=== PATIENT | male | born 1965 | race Caucasian/White ===

== ENCOUNTER → 2020-09-19 | Outpatient (CLI) | payer OTHER ==
[~2020-09-19] MED LIST: CENTRUM SILVER1 EAC2 PO; TRAMADOL 50 MG50 MG PO; VITAMIN D325 MC3 PO
[2020-09-19 09:46] LABS: URINE BILIRUBIN NEGATIVE (Negative); URINE BLOOD NEGATIVE (Negative); URINE CLARITY CLEAR; URINE COLOR YELLOW; URINE GLUCOSE-RANDOM* NEGATIVE (Negative); URINE KETONES NEGATIVE (Negative); URINE LEUKOCYTES-REFLEX NEGATIVE (Negative); URINE NITRITE-REFLEX NEGATIVE (Negative); URINE PROTEIN (DIPSTICK) NEGATIVE (Negative); URINE SPECIFIC GRAVITY 1.025 (1.005-1.035); URINE UROBILINOGEN 0.2 E.U./dl (0.2-1.0)
[2020-09-19 09:48] LABS: HEMATOCRIT 47.2 % (42.0-52.0); HEMOGLOBIN 15.9 gm/dL (14.0-18.0); MCH 30.4 pg (26.0-34.0); MCHC 33.7 g/dL (28.0-37.0); MCV 90.3 fL (80.0-100.0); RBC 5.23 mil/uL (4.50-6.00); WBC 7.1 thou/uL (4.0-11.0)
[2020-09-19 09:54] LABS: ALBUMIN 4.1 g/dL (3.4-5.0); CALCIUM 8.9 mg/dL (8.5-10.1); CREATININE 0.8 mg/dL (0.7-1.3); POTASSIUM 4.3 mmol/L (3.5-5.1)
[2020-09-19 10:06] LABS: INR 0.96; PROTIME 10.5 Seconds (10.5-12.1)
--- NOTE | 2020-09-19 10:43 | EKG ---
[address] [address] ELECTROCARDIOGRAM REPORT Name: NIMA VASQUEZ Room #: [facility]#: [id number] Admission: 09/19/20 Attend Phys: Lanre Ayers MD Discharge: Date of : 61 Report #: [id number] [facility] Test Date: 2020-09-19 Test Time: 09:36:45 Pat Name: NIMA VASQUEZ Department: Room: Gender: Store Clerk: COUNTS INCLUDE 234 BEDS AT THE [facility] : 1965 Requested By: Lanre Ayers Order Number: [id number] : Gianluca Red Measurements Intervals [place] Rate: 59 P: 52 IA: 146 QRS: 67 QRSD: 102 T: 28 QT: 410 QTc: 407 Interpretive Statements Sinus rhythm Baseline wander in lead(s) V5 No previous ECG available for comparison Electronically Signed On 09-19-2020 10:43:19 CDT by Gianluca Red [email or web address] <ELECTRONICALLY SIGNED> By: Gianluca Red MD, [facility] 09/19/20 1043 [id number] 0936 Gianluca Red MD, FACC /EPI
== END ==
LOC: PAC
PROVIDERS: ATTEND Orthopaedic Surgery
DX: Z01.810 Encounter for preprocedural cardiovascular examination (principal); Z01.812 Encounter for preprocedural laboratory examination; M17.11 Unilateral primary osteoarthritis, right knee

== ENCOUNTER 2020-09-25 07:05 | Observation (INO) | payer OTHER ==
[~2020-09-25] VITALS: Ht 195.6 cm; Wt 100.2 kg
[2020-09-25 08:31] VITALS: BP 132/75
--- NOTE | 2020-09-25 14:21 | NUR ---
Pt transferred to unit from PACU. Pt a&ox4. Pain controlled with prn pain meds. Dressing c/d/i. IVF infusing. Pt worked with physical therapy. Pt will stay in the hospital overnight. Family at bedside. Call light within reach. Will continue to monitor.
[2020-09-25 14:55] VITALS: BP 132/75
--- NOTE | 2020-09-25 14:56 | NUR ---
ASSESSMENT: CM REVIEWED CHART AND MET WITH PATIENT AND HIS AT THE BEDSIDE. PT IS ALERT AND ORIENTED X4. PT IS S/P RIGHT TKA. PT REPORTS HAVING A HX OF MULTIPLE SCLEROSIS AND WAS DX 2005. PT REPORTS LIVING IN AN APT WITH HIS . PT REPORTS NO STEPS TO ENTER THE APT OR ONCE INSIDE. PT REPORTS HAVING MULTIPLE CANES AT HOME BUT DOES NOT HAVE A WALKER. PATIENT WORKED WITH PHYSICAL THERAPY WHO IS RECOMMENDING A WALKER FOR HOME. CM DISCUSSED WITH PATIENT AND HE HAS NO PREFERENCE OF DME PROVIDER. CM NOTIFIED [employer] FROM [facility] WHO REPORTS THEY CAN PROVIDE PATIENT WITH A WALKER AND WILL DELIVER IN THE AM. PT REPORTS HAVING OUTPATIENT THERAPY ARRANGED AT [facility] PT TO BEGIN ON TUESDAY. CM DISCUSSED ROLE. PT DOES NOT ANTICIPATE ANY NEEDS FROM CM OTHER THEN A WALKER. CM WILL CONTINUE TO FOLLOW TO ASSIST NEEDED.
[2020-09-25 14:58] VITALS: BP 111/73
[2020-09-25 19:52] VITALS: BP 123/76
--- NOTE | 2020-09-26 04:28 | NUR ---
ASSUMED PT CARE AT 2300.PT WAS ASLEEP AT SHIFT CHANGE.PT WAS LATER HELPED TO THE BR WITH ASSIST/GB AND WALKER.GOOD ENDURANCE NOTED.DRSG C/D/I WITH POLAR. SECOND BAG OF IV ABX GIVEN.PT DENYING PAIN SO FAR.CALL LIGHT WITHIN REACH.
[2020-09-26 09:30] VITALS: BP 136/86
--- NOTE | 2020-09-26 11:59 | NUR ---
Provider plus delivered FWW for his dc home today with outpt therapy.
[2020-09-26 13:04] VITALS: BP 132/75
--- NOTE | 2020-10-02 11:33 | O ---
[facility] [place] [address] OPERATIVE REPORT Name: NIMA VASQUEZ Room #: 436-P [facility] Marcia Pham#: [id number] Admission: 09/25/20 Attend Phys: Lanre Ayers MD Discharge: 09/26/20 Date of : 61 Report #: [id number] THIS REPORT FOR: cc: Jose Davis MD, Timothy MD Abraham,Lanre Campbell MD ~ DOC #: [id number] Lanre Ayers MD DATE OF SERVICE: 09/25/2020 PREOPERATIVE DIAGNOSIS: Right knee osteoarthritis. POSTOPERATIVE DIAGNOSIS: Right knee osteoarthritis. PROCEDURE: Right total knee arthroplasty using Navio robotic assistance. SURGEON: Lanre Ayers MD. AUTO SUSPENSION AND STEERING MECHANIC: Aida Lima PA-C INDICATION FOR AUTO SUSPENSION AND STEERING MECHANIC: Throughout the case, extensive retraction and manipulation of the knee was required. This was afforded to me by my assistant center manager. ANESTHESIA: LMA with adductor canal block. IMPLANTS: A [employer] size 7 Journey II BCS Oxinium femur, size 8 tibia, size 11 polyethylene and size 38 patella. Tourniquet time was 56 minutes. ESTIMATED BLOOD LOSS: 25 mL COMPLICATIONS: None. SPECIMENS: None. CONDITION UPON LEAVING THE OPERATING ROOM: Stable. INDICATIONS FOR PROCEDURE: The patient is a 55-year-old gentleman with severe right knee osteoarthritis. He had failed conservative measures for this and after discussion with him, he elected for right total knee arthroplasty. DESCRIPTION OF PROCEDURE: Risks, benefits, alternatives, complications were discussed in detail with the patient include but not limited to risk of anesthesia, risk of damage to nerves, arteries, blood vessels, risk for infection, bleeding, need for reoperation. Informed consent was obtained from the patient. The right knee was appropriately marked in the preoperative holding area. IV Ancef was given for preoperative antibiotics. He was brought [address] [address] OPERATIVE REPORT Name: NIMA VASQUEZ Raghav Room #: 436-P [facility] Pham#: [id number] Admission: 09/25/20 Attend Phys: Lanre Ayers MD Discharge: 09/26/20 Date of : 61 Report #: [id number] to the operating room and placed in supine position on the operating room table. LMA anesthesia was induced without complication. Tourniquet was placed on the right thigh. Right lower extremity was prepped and draped in normal sterile fashion. Timeout was performed properly identifying the patient and procedure as well as instrumentation and implants. All in the operating room in agreement. Right lower extremity was exsanguinated, tourniquet was inflated. Tourniquet time was 56 minutes. Standard midline approach to the knee was made with 10 blade through the skin. Dissection was taken down sharply to the fascia and deep flaps were developed medially and laterally. Fresh 10 blade was used to make a medial parapatellar arthrotomy and the knee was inspected. There was severe tricompartmental osteoarthritis. ACL and PCL were removed sharply. Reference pins were placed in the femur and the tibia. The knee was digitally mapped using the RateSetter robotic system. Intraoperative plan was made. We sized the size 7 femur, the size 8 tibia and a 10 spacer. After acceptance of the intraoperative plan, the distal femoral cut was made with Navio bur. Distal femoral cutting block was pinned in place and chamfer cuts were made. Attention was turned to the tibia. Remainder of the menisci removed with Bovie cautery. Tibial resection guide was pinned in place using Navio for placement. Tibial resection was made. Medial osteophyte was removed from the tibia and flexion and extension gaps were checked and found to have good balance in flexion and extension both medially and laterally. Tibia sized, found to be a size 8. Size 8 tibial trial was placed, pinned and punched. A size 7 femoral trial was placed and the box cut was made. This was then trialed with a size 10 and then a size 11 polyethylene and a size 11 polyethylene demonstrated the best stability and range of motion both medially and laterally, 9 mm of bone was then resected from the posterior surface of the patella and a size 38 patellar trial button was placed. Knee was taken through range of motion, found to be stable, found to have good patellar tracking. Trial components were removed. Bone ends were thoroughly irrigated with normal saline. Final size 8, tibia size 7 Journey II BCS Oxinium femur and a size 38 patella were cemented in place using standard cementation techniques. While the cement cured, a periarticular injection consisting of morphine, ropivacaine, epinephrine. Toradol was placed around the knee joint capsule. After the cement cured, tourniquet was deflated. Hemostasis was obtained with Bovie cautery. A final size 11 polyethylene was placed. A gram of vancomycin was placed deep in the joint. The fascia was closed with 0 Vicryl. Skin was closed with 2-0 Vicryl, 3-0 Monocryl. Dermabond and a SHANTELL dressing was applied. The patient tolerated this procedure well and went to recovery room under care of anesthesia postoperatively. Lanre Ayers MD [facility] [address] [address] OPERATIVE REPORT Name: NIMA VASQUEZ Raghav Room #: 436-P [facility] Marcia Pham#: [id number] Admission: 09/25/20 Attend Phys: Lanre Ayers MD Discharge: 09/26/20 Date of : 61 Report #: [id number] <ELECTRONICALLY SIGNED> By: Lanre Ayers MD 10/02/20 1133 1554 1740 Lanre Ayers MD /nt
== END 2020-09-26 13:45 | disposition home or self-care (01) ==
LOC: OR → TBA 07:05 → OR 09:06 → 4S 12:12 → OR 14:21 → 4S 15:47 → OR 15:47 → 4S 09-26 13:45
PROVIDERS: ADMIT Orthopaedic Surgery; ATTEND Orthopaedic Surgery
DX: M17.11 Unilateral primary osteoarthritis, right knee (principal); Z88.1 Allergy status to other antibiotic agents
CPT/HCPCS: 50010; 50101; 50415; 50954; 51130; 51225; 51320; 52001; 52282; 53000; 53078; 53365; 54118; 56527; 56528; 57095; 57103; 57110; 57127; 57180; 62110; 62900; 64039; 64043; 70005